=== PATIENT | female | born 1970 | race Hispanic/Latino ===

== ENCOUNTER 2024-03-18 19:49 | Emergency (ER) | payer SELFPAY ==
--- NOTE | 2024-03-18 19:55 | ED.URI ---
HPI - URI/Sore Throat General Chief Complaint: Upper Respiratory Infection Stated Complaint: Cough and Chest Pain Time Seen by Provider: 03/18/24 19:58 Source: patient and RN notes reviewed Mode of arrival: ambulatory Limitations: no limitations History of Present Illness HPI Narrative: 53-year-old female presents concern for one-week history of cough, chest discomfort with coughing. Reports she has tried multiple [id number] medications without relief. Reports she has not had a fever in last couple of days. She denies nasal congestion, rhinorrhea. Reports the throat MD elicited complaint: cough Related Data Home Medications Medication Instructions Recorded Confirmed canagliflozin 300 mg tablet 300 mg PO DAILY 03/18/24 03/18/24 (Invokana) glimepiride 4 mg tablet 4 mg PO DAILY 03/18/24 03/18/24 lisinopril 20 1 tablet PO BID 03/18/24 03/18/24 mg-hydrochlorothiazide 12.5 mg tablet rosuvastatin 10 mg tablet 10 mg PO DAILY 03/18/24 03/18/24 Allergies Allergy/AdvReac Type Severity Reaction Status Date / Time Penicillins Allergy Mild Rash Verified 03/18/24 20:09 Review of Systems Review of Systems: CONSTITUTIONAL: Denies malaise, chills, sweats, or fever. EYES: Denies visual changes, redness, or discharge. ENT: Denies rhinorrhea, congestion, sinus pain, otalgia. Reports sore throat. CARDIOVASCULAR: Denies chest pain, palpitations, or edema. RESPIRATORY: Reports cough. Denies dyspnea. GASTROINTESTINAL: Denies abdominal pain, nausea, vomiting, diarrhea SKIN: Denies rash or itching. MUSCULOSKELETAL: Denies myalgia. NEUROLOGIC: Denies headache. All systems reviewed & are unremarkable except as noted in HPI and below PMFSH Comments At time of signature, agree with nursing past medical, surgical, social and family history. There is no relevant family history pertinent to the presenting complaint Exam Narrative: GENERAL: Well-appearing, well-nourished, and in no acute distress. HEAD: Normocephalic EYES: PERRLA, conjunctivae clear ENT: Nares clear, turbinates edematous and erythematous, clear discharge. Mucous membranes moist. TM pearly blue with dull light reflex bilaterally; no tragal tenderness. Oropharynx not erythematous without lesions. Tonsils not enlarged and without exudate, no drooling, no hoarseness, no trismus, uvula midline. NECK: Supple. No lymphadenopathy CHEST: Clear to auscultation, breath sounds equal. No wheezing, rhonchi, rales, or stridor. No respiratory distress, speaks in full sentences. HEART: Regular rate and rhythm. No murmur heard. SKIN: Warm, dry, no rash. NEURO: Alert and oriented x3. PSYCH: Normal mood and affect Course Course Emergency Course: Patient is aware of diagnosis, understands and agrees to treatment plan. Anticipatory guidance given. Patient agrees to follow-up as directed and is aware of reasons to seek care at the emergency department. Portions of this record may have been created with voice recognition software Level of Care: Express Care Visit Vital Signs Vital signs: Reviewed. MDM - URI/Sore Throat MDM Narrative Medical decision making narrative: Differential diagnosis considered: Liang virus, strep pharyngitis, allergic rhinitis, upper respiratory tract infection, sinusitis, rhinosinusitis, nasopharyngitis. viral pharyngitis, otitis media, otitis externa, pneumonia, bronchitis, viral cough syndrome, viral syndrome, and influenza. Exam findings show no acute concerns or changes; patient is non-toxic appearing and is in no distress. Patient is appropriate for outpatient treatment and follow-up. Lab Data Attestation: I reviewed the patient's lab results. Critical Care Time Critical Care Time Critical Care Time: No Discharge Plan Discharge Clinical Impression: Acute lower respiratory infection Patient Disposition: Home, Self-Care Condition: Stable Instructions: Antibiotic Form, How to Use a Metered-Dose Inhaler and a Spacer (ED)
[2024-03-18 19:57] VITALS: BP 145/90; PULSE 133; RESP 18; TEMP 37; O2SAT 99
[2024-03-18 20:14] LABS: EDINFLUASCREEN Negative; EDINFLUBSCREEN Negative
== END 2024-03-18 20:15 | disposition home or self-care (01) ==
PROVIDERS: Emergency Provider Nurse Practitioner; PCP Physician Assistant Medical
DX: J22 Unspecified acute lower respiratory infection (principal); Z20.822 Contact with and (suspected) exposure to COVID-19
CPT/HCPCS: 87426; 87804; 99203; G0463